=== PATIENT | male | born 1960 | race Caucasian/White ===

== ENCOUNTER 2024-09-15 12:50 | Outpatient (CLI) | payer BC, SELFPAY ==
[2024-09-16 18:56] LABS: PSA, Ultrasensitive 1.8 ng/mL (<= 4.5)
== END 2024-09-15 12:51 | disposition home or self-care (01) ==
LOC: LBO 12:52
PROVIDERS: Visit Provider Student in an Organized Health Care Education/Training Program
DX: R97.20 Elevated prostate specific antigen [PSA] (principal)
CPT/HCPCS: 36415; 84153

== ENCOUNTER 2025-07-13 07:47 | Outpatient (CLI) | payer MEDICARE, BC, SELFPAY | END 2025-07-13 07:48 | disposition home or self-care (01) | LOC: LBO 07:47 | PROVIDERS: Visit Provider Urology | DX: R97.20 Elevated prostate specific antigen [PSA] (principal) | CPT/HCPCS: 36415; 84153 ==